=== PATIENT | male | born 1965 | race Caucasian/White ===

== ENCOUNTER 2018-05-24 08:52 | Day surgery (SDC) | payer OTHER ==
[2018-05-22 15:44] LABS: BASOPHILS # (AUTO) 0.04 x10^3/uL (0-0.1); BASOPHILS % (AUTO) 1 % (0-1); EOSINOPHILS % (AUTO) 2 % (1-7); LYMPHOCYTES # (AUTO) 1.95 x10^3/uL (1-3.4); LYMPHOCYTES % (AUTO) 29 % (22-44); MD NO; MEAN CORPUSCULAR HEMOGLOBIN 31.1 pg (27.5-34.5); MEAN CORPUSCULAR HGB CONC 34.2 g/dL (33.2-36.2); MEAN CORPUSCULAR VOLUME 90.7 fL (81-97); MEAN PLATELET VOLUME 7.1 fL (7.4-10.4); MONOCYTES # (AUTO) 0.53 x10^3/uL (0.2-0.8); MONOCYTES % (AUTO) 8 % (2-9); NEUTROPHILS # (AUTO) 4.04 x10^3/uL (1.8-6.8); NEUTROPHILS % (AUTO) 61 % (42-75); PLATELET COUNT 233 x10^3/uL (130-400); RED BLOOD COUNT 4.36 x10^6/uL (4.38-5.82); RED CELL DISTRIBUTION WIDTH 13.8 % (9.4-14.8)
[2018-05-22 15:46] VITALS: BP 151/94
[2018-05-22 15:52] LABS: ALBUMIN 3.9 g/dL (3.4-5.0); ANION GAP 6 mmol/L (5-15); CALCIUM 9.1 mg/dL (8.5-10.1); CHLORIDE 110 mmol/L (98-107)
[2018-05-22 15:58] LABS: MICROSCOPIC NOT IND
[2018-05-22 16:01] LABS: ALANINE AMINOTRANSFERASE 57 U/L (12-78); ALKALINE PHOSPHATASE 111 U/L (45-117); BILIRUBIN,TOTAL 0.5 mg/dL (0.2-1.0); TOTAL PROTEIN 7.6 g/dL (6.4-8.2)
[~2018-05-24] VITALS: Ht 182.9 cm; Wt 131.3 kg
[~2018-05-24 08:52] MED LIST: CALC500T93 PO; CHOL500015 PO; CHOL500050 PO; FENO200C PO; INSU100I43 SQ-INSULIN; LIRA0.6P2 SQ; LOSA100T14 PO; METF-650 PO; OMEG1CAP6 PO; SERT100T PO
[2018-05-24] MEDS ORDERED: LACTATED RINGERS 1,000 ML IV SCH (09:30)
[2018-05-24 09:37] VITALS: BP 151/94
[2018-05-24] MEDS ORDERED: MIDAZOLAM 1 MG/ML, 2ML ONE (10:51)
[2018-05-24] MEDS ORDERED: FENTANYL PF 100 MCG/2ML ONE ×2 (10:51→13:04)
[2018-05-24] MEDS ORDERED: PROPOFOL 10 MG/ML, 20ML ONE (11:22)
[2018-05-24] MEDS ORDERED: ROCURONIUM 10 MG/ML,10ML ONE (11:22)
[2018-05-24] MEDS ORDERED: SUCCINYLCHOLINE 20 MG/ML, 10ML ONE (11:22)
[2018-05-24] MEDS ORDERED: OMNIPAQUE 350 MG/ML, 50 ML BOTTLE ONE (12:57)
[2018-05-24] MEDS ORDERED: ALBUTEROL SULFATE 2.5 MG/3 ML NPPB PRN (13:00)
[2018-05-24] MEDS ORDERED: LABETALOL 5MG/ML, 20ML IV PRN (13:00)
[2018-05-24] MEDS ORDERED: OXYcodone 5 MG/5 ML ORAL.SOL UDC PO PRN (13:00)
[2018-05-24] MEDS ORDERED: KETOROLAC 30 MG/1 ML IV PRN (13:00)
[2018-05-24] MEDS ORDERED: PROMETHAZINE 25 MG/ML, 1ML IV PRN (13:00)
[2018-05-24] MEDS ORDERED: MEPERIDINE/PF 25MG/0.5ML IVPush PRN (13:00)
[2018-05-24] MEDS ORDERED: CEFTRIAXONE PMX 1GM/50ML 50 ML IV ONE (13:00)
[2018-05-24] MEDS ORDERED: ONDANSETRON 2MG/ML, 2ML IVPush PRN (13:00)
[2018-05-24] MEDS ORDERED: METOCLOPRAMIDE 5 MG/ML, 2ML IV PRN (13:00)
[2018-05-24] MEDS ORDERED: OXYcodone 5 MG/5 ML ORAL.SOL UDC ONE (13:04)
[2018-05-24] MEDS: FENTANYL PF 100 MCG/2ML IV PRN ×2 (13:06→13:30)
[2018-05-24] MEDS ORDERED: hydrALAzine 20 MG/ML, 1ML ONE (13:17)
[2018-05-24] MEDS: hydrALAzine 20 MG/ML, 1ML IV PRN ×2 (13:18→14:11)
[2018-05-24] MEDS ORDERED: HYDROmorphone 2 MG/ML, 1ML ONE (13:58)
[2018-05-24] MEDS: HYDROmorphone 1 MG/ML, 1ML IV PRN ×2 (14:01→14:09)
== END 2018-05-24 15:00 | disposition home or self-care (01) ==
LOC: OUT 08:52
PROVIDERS: ATTEND Urology
DX: N20.2 Calculus of kidney with calculus of ureter (principal); I10 Essential (primary) hypertension; E11.9 Type 2 diabetes mellitus without complications; Z79.4 Long term (current) use of insulin; Z72.89 Other problems related to lifestyle
CPT/HCPCS: 36415; 52356; 80053; 81003; 82962; 85025; 87086; 93005; C1758; C2617; G0103; J0330; J0360; J0696; J1170; J2250; J2704; J3010; J7120; Q9967